=== PATIENT | female | born 1980 | race Caucasian/White ===

== ENCOUNTER 2018-07-24 20:15 | Inpatient (IN) | payer BC ==
[2018-07-24] MEDS ORDERED: Lactated Ringers 1,000 ML IV ONE (20:54)
[2018-07-24] MEDS: Sodium Chloride 0.9% 10 ML Syringe FLUSH PRN (21:57)
[2018-07-25] MEDS: Nalbuphine 10 MG/1 ML Vial IVPUSH PRN ×2 (01:24→09:00)
[2018-07-25] MEDS: Sodium Chloride 0.9% 10 ML Syringe FLUSH PRN ×2 (09:00→10:41)
[2018-07-25] MEDS ORDERED: Nalbuphine 10 MG/1 ML Vial IVPUSH ONE (10:20)
[2018-07-25] MEDS ORDERED: Oxytocin 10 Units/1 ML SDV IM ONE (11:44)
[2018-07-25] MEDS ORDERED: Lidocaine 1% 20 ML MDV INJECT ONE (11:44)
[2018-07-25] MEDS ORDERED: Acetaminophen/Codeine 300-30 MG Tab PO PRN (12:12)
--- NOTE | 2018-07-25 14:30 | DEL ---
DATE OF DELIVERY: 07/25/2018 Denisa Chirinos is a 37-year-old, 4, para 3-0-0-3, female, who was admitted on the evening of 07/24/2018. She has had a difficult course over the last couple weeks' duration. She has had two acute care hospital stays, , at [facility]. First for premonition of labor, corticosteroids were given for lung maturation, and discharged with modified activity. Was readmitted to [facility] with complicated abdominal pain last week. No origin was found. well being satisfactory. No complicating issues. Presented the evening of 07/24/18 in active early labor. She was dilated to 5 cm, vertex presentation, satisfactory heart tones. No urgency. Presents at 36-1/7 weeks' gestation. Was observed overnight. In the morning, she was found to be 6 cm. Given steroid intervention, maternal discomfort, felt that delivery was appropriate. She was comfortable delivering here at [facility] without a new intensive care. Amniotomy was performed, clear fluid. Labor progressed well. Was a little reluctant to begin with, dilatation was minimal the first couple of hours, descent was appropriate, and thinning was appropriate. She was given Nubain for analgesia, went from 8 to complete. I was asked to attend the delivery. Upon examination, she had an anterior rim. With two pushes, the cervix was brought over the baby's head. Over the course of about 20 minutes, good maternal effort, increasingly better as second stage occurred. Perineum was injected, small midline episiotomy was performed. Child was delivered in HENNY presentation. Both nares and oropharynx were suctioned. Nuchal cord delivered without dystocia. Male infant, weight 6 pounds 9 ounces. scores of 9 and 9. No shoulder dystocia. Was placed on mom's tummy for warming and resuscitation. After adequate time, about 4 minutes, cord, with no further pulsation, was clamped and cut by dad in attendance. Three-cord vessel was identified. About 15 minutes of third stage, placenta delivered without difficulty in Schultze presentation. 10 units of Pitocin was given IM, massaged the tummy. The perineum was inspected, a small second degree, was repaired with 4-0 Vicryl suture. Surgical result was excellent. Blood loss 150 mL. ASSESSMENT: 1. A 36-1/7 weeks' delivery, special circumstances noted. 2. Amniotomy. 3. Nubain analgesia, midline episiotomy without extension, 6 pound 9 ounce male , scores of 9 and 9. 4. Planned nursing. PLAN: Routine course. No complicating issues. Watch closely for uterine tone and well being. Ambulation as appropriate. Analgesics as appropriate. Vital signs as appropriate. Expect a short-term stay. /[id number] /[id number]
[2018-07-25] MEDS: Docusate Sodium 100 MG Cap PO SCH (20:15)
[2018-07-25] MEDS: Pantoprazole 40 MG Tab.CR PO SCH (20:15)
[2018-07-25] MEDS: Ibuprofen 600 MG Tab PO PRN (21:16)
[2018-07-26] MEDS ORDERED: Measles, Mumps & Rubella Vaccine 0.5 ML SDV SUBCUT ONE (06:39)
[2018-07-26] MEDS: Ibuprofen 600 MG Tab PO PRN ×2 (08:27→15:52)
[2018-07-26] MEDS: Docusate Sodium 100 MG Cap PO SCH ×2 (08:49→21:27)
[2018-07-26] MEDS: Prenatal Multivitamin with Calcium/Folic Acid/Fe Fumarate Cap PO SCH (08:50)
[2018-07-26] MEDS: Pantoprazole 40 MG Tab.CR PO SCH (21:27)
[2018-07-27] MEDS: Ibuprofen 600 MG Tab PO PRN (05:50)
[2018-07-27] MEDS: Prenatal Multivitamin with Calcium/Folic Acid/Fe Fumarate Cap PO SCH (09:44)
[2018-07-27] MEDS: Docusate Sodium 100 MG Cap PO SCH (09:44)
[2018-07-27 10:20] VITALS: BP 116/63
== END 2018-07-27 12:45 | disposition home or self-care (01) | DRG 560 ==
LOC: FB.OB 20:15 → FB.OBCHECK 20:15 → FB.OB 20:15 → UNDOADMOB 20:15 → INTOOBSV 20:15 → OBSVTOIN 20:15 → FB.OBCHECK 07-25 11:43 → UNDOADMOB 07-25 11:44 → OBSVTOIN 07-25 11:44 → INTOOBSV 07-25 11:44 → FB.OB 07-25 11:44 → UNDODISIN 07-27 12:45
PROVIDERS: ADMIT Family Medicine; ATTEND Family Medicine
PROC: 0KQM0ZZ Repair Perineum Muscle, Open Approach (ICD-10-PCS; principal; 2018-07-25)
PROC: 10E0XZZ Delivery of Products of Conception, External Approach (ICD-10-PCS; 2018-07-25)
PROC: 10907ZC Drainage of Amniotic Fluid, Therapeutic from Products of Conception, Via Natural or Artificial Opening (ICD-10-PCS; 2018-07-25)
PROC: 0W8NXZZ Division of Female Perineum, External Approach (ICD-10-PCS; 2018-07-25)
DX: O70.1 Second degree perineal laceration during delivery (principal); Z3A.36 36 weeks gestation of pregnancy; Z37.0 Single live birth
CPT/HCPCS: 36415; 59409; 85014; 85018; A9270-GY; J2001; J2300; J2590; J7120